=== PATIENT | female | born 1965 | race Caucasian/White ===

== ENCOUNTER → 2016-06-20 | Outpatient (CLI) | payer BC ==
[~2016-06-20] MED LIST: TOPI200T14 PO
--- NOTE | 2016-06-20 10:13 | DIAGNOSTIC IMAGING REPORT ---
LEFT SHOULDER MIN 2 VIEWS ROUTINE CLINICAL HISTORY: PAIN IN LEFT SHOULDER pain COMPARISON: None. DISCUSSION: Minimal calcific supraspinatus tendinitis. Glenohumeral joint is intact. Acromioclavicular joint shows no evidence for disruption. There is no evidence for soft tissue swelling. IMPRESSION: Minimal calcific supraspinatus tendinitis. Electronically signed by: Reji Bolivar M.D. 06/20/2016 10:12 AM Dictated Date/Time: 06/20/2016 10:11 AM
== END | disposition home or self-care (01) ==
LOC: C.LABBC 09:40
PROVIDERS: ATTEND Nurse Practitioner Family
DX: M25.512 Pain in left shoulder (principal); Z87.828 Personal history of other (healed) physical injury and trauma

== ENCOUNTER → 2017-01-14 | Outpatient (CLI) | payer BC ==
--- NOTE | 2017-01-15 07:58 | MAMMOGRAPHY REPORT ---
BILATERAL DIGITAL SCREENING MAMMOGRAM TOMOSYNTHESIS WITH CAD: 01/14/2017 CLINICAL HISTORY: Routine screening. Patient has no complaints. TECHNIQUE: Breast tomosynthesis in addition to standard 2D mammography was performed. Current study was also evaluated with a Computer Aided Detection (CAD) system. COMPARISON: Comparison is made to exams dated: 12/07/2015 mammogram, 12/01/2014 mammogram, 11/29/2013 ma mmogram, 11/26/2012 mammogram, 11/26/2011 mammogram, and 11/21/2010 mammogram - [facility]. BREAST COMPOSITION: The tissue of both breasts is heterogeneously dense, which may obscure small mas ses. FINDINGS: There is an asymmetry in the superior middle one third of the left breast on the MLO view that partially effaces on the tomosynthesis images. However, additional spot compression tomosynthes is views and possible ultrasound are recommended to exclude an underlying mass. There is a possible cluster of microcalcifications in the upper outer posterior left breast, for which additional spot ma gnification views are recommended. No other suspicious mass, architectural distortion or cluster of microcalcifications is seen bilatera lly. IMPRESSION: ACR BI-RADS CATEGORY 0: INCOMPLETE EVALUATION: NEED ADDITIONAL IMAGING EVALUATION The asymmetry in the superior left breast on the MLO view and possible cluster of microcalcifications in the left upper outer quadrant need additional imaging evaluation. The patient will be called to schedule an appointment. Approximately 10% of breast cancers are not detected with mammography. A negative mammographic report should not delay biopsy if a clinically suggestive mass is present. April Aaron M.D. ay/:01/14/2017 20:55:49 Certified Dialysis Technician: Thalia MEEK(Trever)(M), [facility] letter sent: Addl Imaging 0 BI-RADS Code: ACR BI-RADS Category 0: Incomplete Evaluation: Need Additional Imaging Evaluation
== END | disposition home or self-care (01) ==
LOC: C.MAMM 10:48
PROVIDERS: ATTEND Nurse Practitioner Family
DX: Z12.31 Encounter for screening mammogram for malignant neoplasm of breast (principal); N64.89 Other specified disorders of breast

== ENCOUNTER → 2017-01-29 | Outpatient (CLI) | payer BC ==
--- NOTE | 2017-01-30 07:52 | MAMMOGRAPHY REPORT ---
UNILATERAL LEFT DIGITAL DIAGNOSTIC MAMMOGRAM TOMOSYNTHESIS AND TARGETED BILATERAL ULTRASOUND: 01/30/20 17 CLINICAL HISTORY: 51-year-old woman called back from screening mammography for left lateral microcalc ifications and asymmetry in the superior left breast on the MLO view. No family history of breast ca ncer. TECHNIQUE: Spot magnification left CC, ML, spot compression tomosynthesis left cc and MLO views were obtained. COMPARISON: Comparison is made to exams dated: 01/14/2017 mammogram, 12/07/2015 mammogram, 12/01/2014 mammogram, 11/29/2013 mammogram, 11/26/2011 mammogram, and 11/21/2010 mammogram - [facility]. BREAST COMPOSITION: The tissue of the left breast is heterogeneously dense, which may obscure small masses. FINDINGS: The spot magnification views of the left breast demonstrate regional punctate microcalcifi cations throughout the lateral middle and posterior one third of the breast, with a tighter grouping of calcifications in the lateral left breast, 6.6 cm distal to the nipple on the spot magnification C C view. These are thought to project superior lead based on the spot magnification MLO view. No ass ociated architectural distortion or asymmetry. When comparing back to prior available mammograms, th shane appear increased in number although this may be in part due to technique. Nevertheless, given th e possible interval increase, definitive characterization with a stereotactic biopsy is recommended. The spot compression tomosynthesis views of the left breast demonstrate partial effacement of the asy mmetry in the superior breast on the MLO view. On the corresponding tomosynthesis images, this area effaces and has the appearance of normal glandular tissue. Targeted ultrasound was performed in the superior left breast and also in the right breast 12:00, ret roareolar, 6:00, 7:00 and 11:00 axes to assess for an area of asymmetry seen on the CC view that was identified during this diagnostic exam while reviewing the images with the patient. Throughout the s uperior left breast, sonographically normal dense glandular tissue is seen without a suspicious solid or cystic mass. Likewise, in the right breast on targeted ultrasound, no suspicious solid or cystic mass is seen to correlate with the mammographic asymmetry. These asymmetries are considered benign, most likely representing normal overlapping fibroglandular tissue. IMPRESSION: ACR BI-RADS CATEGORY 4: SUSPICIOUS, TARGETED ULTRASOUND ACR BI-RADS CATEGORY 4: SUSPICIO US 1. Left breast stereotactic guided biopsy is recommended for a grouping of punctate microcalcificati ons in the lateral breast, best seen on the spot magnification CC view. 2. An asymmetry in the superior left breast on the MLO view effaces with additional tomosynthesis im ages, and no suspicious sonographic correlate was identified. No suspicious abnormality was seen in the right breast on ultrasound and area of asymmetry seen on the right CC view. These asymmetries ar e considered benign and no further workup is needed at this time. These results and recommendations were discussed with the patient at the time of the exam. She tenta tively scheduled a left breast biopsy prior to leaving our department. Approximately 10% of breast cancers are not detected with mammography. A negative mammographic report should not delay biopsy if a clinically suggestive mass is present. Arpil Aaron M.D. ay/:01/29/2017 15:20:53 Wire Tinner: Thalia Suresh, [facility] letter sent: Abnormal 4/5 BI-RADS Code: ACR BI-RADS Category 4: Suspicious Ultrasound BI-RADS: ACR BI-RADS Category 4: Suspici ous
== END | disposition home or self-care (01) ==
LOC: C.MAMM 13:33
PROVIDERS: ATTEND Nurse Practitioner Family
DX: N64.89 Other specified disorders of breast (principal); R92.0 Mammographic microcalcification found on diagnostic imaging of breast

== ENCOUNTER → 2017-02-06 | Outpatient (CLI) | payer BC ==
--- NOTE | 2017-02-06 13:15 | Discharge Instructions ---
Discharge Instructions Procedure Procedure Date: Feb 06, 2017. Reason for visit: Left Microcalcs. Discharge Discharge Date: Feb 06, 2017. Discharge Diagnosis: status post breast biopsy Instructions Activity Recommendations: Additional Limitations (see below) Return to School/Work: no limitations Recommended Home Diet: No Limitations Provider Instructions: ACTIVITY RECOMMENDATIONS: * No lifting, pushing, pulling or exercising the affected side for three days. RETURN TO SCHOOL/WORK: * You may return to work/school after the procedure, but do not perform any strenuous activities for 24 to 48 hours. MEDICATIONS: * Tylenol (two 325 mg) every four to six hours if needed for mild pain (if not allergic to Tylenol). DIET: * Resume previous diet. SPECIAL CARE INSTRUCTIONS: * Keep biopsy site dry for 24 hours. May shower after 24 hours, but do not soak (bathe) incision. * May remove Tegaderm (plastic patch) tomorrow AFTER showering. * Leave the steri-strips on for one week. Allow the steri-strips to fall off by themselves. If not off after one week, you may remove them. You may place a Bandaid crosswise over the strips, if desired. * Apply ice 10 minutes on and 10 minutes off as needed. * Wear a bra at bedtime to sleep more comfortably for 2-3 days. * Your referring physician should have the results after approximately 5 to 7 business days. * Call for unusual bleeding, fever, drainage, etc or if you have any questions call during normal business hours or after hours call Dr Handy, [phone]. FOLLOW UP VISIT: Follow-up with Referring Physician as scheduled. Allergies Coded Allergies: Phenytoin (Verified Allergy, Severe, Rash, fever, leukopenia, 04/28/09) She was placed on Dilantin for prophylaxis of seizure. Since transferred to [facility] the patient has had an elevated temperature on and off with a rash on the face and chest. Dr. Crum, Dr. Alatorre, and Dr. Hubbard were all consulted. It was thought that the patient's symptoms and signs were typical for Dilantin reaction and Dilantin was discontinued at the time of admission. The patient's fever lingered for a few days and she was afebrile for over 24 hours and the rash had gradually improved with only the residual rash on the hands and feet. Itchiness had improved with Ana Cristina. The patient developed leukopenia as well as anemia during the course of her hospitalization with a white count dropping from 2.4 at the time of admission to 1.8 two days prior to discharge. This was felt to be related to the Dilantin reaction as well. Sulfa Drugs (Verified Allergy, Intermediate, RASH, 04/28/09) Clonidine (Verified Adverse Reaction, Intermediate, Feels tired, 04/28/09) Shirley Parekh Recommendations: Call your doctor if: * Temperature above 101 degrees * Pain not relieved by pain medicine ordered * There is increased drainage or redness from any incision * You have any unanswered questions or concerns. Your Doctors Instructions noted above were prepared by provider Dodie Handy. Patient Signature Section: Patient Instructions Signature Page Lindy Hillman Patient (or Guardian) Signature/Date: I have read and understand the instructions given to me by my caregivers. Caregiver/RN/Doctor Signature/Date: The above-named patient and/or guardian has received patient instructions on this date. + Original Patient Signature Page (only) stays with chart. Please make copy for patient.
--- NOTE | 2017-02-06 15:31 | MAMMOGRAPHY REPORT ---
STEREOTACTIC GUIDED BIOPSY LEFT BREAST: 02/06/2017 CLINICAL HISTORY: Left lateral breast calcifications. PATIENT CONSENT: The procedure, risks, benefits, and alternatives of stereotactic biopsy with clip pl acement were discussed with the patient, and verbal and written consent was obtained. A timeout was performed immediately prior to the procedure. PROCEDURE DESCRIPTION: With stereotactic guidance, aseptic technique, and lidocaine as a local anesth etic (1% lidocaine to anesthetize the skin and 1% lidocaine with epinephrine to anesthetize the deepe r tissues), the calcifications of concern in the left lateral breast were sampled multiple times with a 9-gauge vacuum-assisted biopsy needle ([employer]). The path of approach was craniocaudal. The specimen radiograph demonstrates calcifications to be present in the samples. A metallic marker clip was placed at the biopsy site. This was confirmed on postprocedure mammograms. Direct pressure was applied at the biopsy site and hemostasis was readily achieved. The patient tolerated the procedure without complication. She was given wound care instructions. COMPARISON: Comparison is made to exams dated: 01/29/2017 ultrasound, 01/29/2017 mammogram, 01/14/2017 mammogram, 12/07/2015 mammogram, 12/01/2014 mammogram, and 11/29/2013 mammogram - [facility]. IMPRESSION: STEREOTACTIC GUIDED BIOPSY Stereotactic biopsy of indeterminate calcifications in the left lateral breast, with clip placement. The patient will receive pathology results from her referring provider. Dodie Handy M.D. /:02/06/2017 13:16:35 Attending Technologist: Kayleigh PÉREZ)(Willie), [facility] Marine Design Engineer: Thalia Suresh, [facility]
--- NOTE | 2017-02-06 15:31 | MAMMOGRAPHY REPORT ---
UNILATERAL LEFT DIGITAL DIAGNOSTIC MAMMOGRAM: 02/06/2017 CLINICAL HISTORY: Status post left breast stereotactic biopsy. TECHNIQUE: Postprocedural left CC and ML views were obtained. COMPARISON: Comparison is made to exams dated: 01/29/2017 ultrasound, 01/29/2017 mammogram, 01/14/2017 mammogram, 12/07/2015 mammogram, 12/01/2014 mammogram, and 11/29/2013 mammogram - [facility]. BREAST COMPOSITION: The tissue of the left breast is heterogeneously dense, which may obscure small masses. FINDINGS: A new biopsy marker clip is seen at the site of the biopsied calcifications in the left up per outer quadrant. No significant postbiopsy hematoma is seen. IMPRESSION: POST PROCEDURE IMAGING FOR MARKER PLACEMENT New biopsy marker clip status post left breast stereotactic biopsy. Pathology results are pending. Approximately 10% of breast cancers are not detected with mammography. A negative mammographic report should not delay biopsy if a clinically suggestive mass is present. Dodie Handy M.D. ah/:02/06/2017 13:29:21 Attending Technologist: Kayleigh MEEK(Trever)(M), [facility] Admissions Consultant: Thalia Suresh, [facility] BI-RADS Code: Post Procedure Imaging For Marker Placement
== END | disposition home or self-care (01) ==
LOC: C.MAMM 12:39
PROVIDERS: ATTEND Nurse Practitioner Family
DX: R92.0 Mammographic microcalcification found on diagnostic imaging of breast (principal); N60.22 Fibroadenosis of left breast